=== PATIENT | male | born 1940 | race Caucasian/White ===

== ENCOUNTER 2017-06-29 15:44 | Emergency (ER) | payer OTHER ==
[~2017-06-29] VITALS: Ht 177.8 cm; Wt 79.4 kg
--- NOTE | ~2017-06-29 | EKG ---
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: [facility] : 1940 Requested By: Guzman Díaz Order Number: [id number] MD: Johny Carney Measurements Intervals [place] Rate: 78 P: 18 IN: 154 QRS: -54 QRSD: 79 T: 66 QT: 371 QTc: 423 Interpretive Statements Sinus rhythm Abnormal R-wave progression, early transition Inferior infarct, old Compared to ECG 10/28/2013 22:49:47 Sinus tachycardia no longer present Ventricular premature complex(es) no longer present Left-axis deviation no longer present Myocardial infarct finding still present Electronically Signed On 06-29-2017 16:36:40 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
[~2017-06-29 15:44] MED LIST: ASPIRIN81 M2 PO; CALCIUM 600 +1 EA11 PO; CLARAVIS10 MG PO; COUMADIN6 MG PO; DILTIAZEM ER120 M1 PO; FEXOFENADINE HC30 MG PO; FLONASE 0.05%50 MCG NS; LOVASTAT40 PO; MACROBID 100 M100 M1 PO; MULTIVITAMINS PO
[2017-06-29 16:09] LABS: ABSOLUTE NEUTROPHILS 9.1 thou/uL (1.4-8.2); BASOPHILS 0.9 % (0.0-2.0); EOSINOPHILS 1.4 % (0.0-3.0); HEMATOCRIT 41.8 % (42.0-52.0); HEMOGLOBIN 13.8 gm/dL (14.0-18.0); LYMPHOCYTES 11.2 % (24.0-44.0); MCHC 32.9 g/dL (28.0-37.0); MCV 91.3 fL (80.0-100.0); MONOCYTES 9.1 % (1.0-8.0); PLATELET COUNT 164 thou/uL (150-400); POLYS 77.4 % (36.0-66.0); RBC 4.58 mil/uL (4.50-6.00); RDW 14.4 % (10.5-14.5); WBC 11.7 thou/uL (4.0-11.0)
[2017-06-29 16:14] LABS: MANUAL DIFF NO
[2017-06-29 16:21] LABS: ANION GAP 4 mmol/L (7-16); BUN 23 mg/dL (7-18); CALCIUM 9.3 mg/dL (8.5-10.1); CHLORIDE 107 mmol/L (98-107); CO2 30 mmol/L (21-32); CREATININE 1.5 mg/dL (0.7-1.3); GLUCOSE 102 mg/dL (74-106); POTASSIUM 4.1 mmol/L (3.5-5.1); SODIUM 141 mmol/L (136-145)
[2017-06-29 16:22] LABS: APTT 29.5 Seconds (24.5-32.8); PROTIME 10.2 Seconds (9.3-11.4)
[2017-06-29 16:30] LABS: TROPONIN-I < 0.04 ng/mL (<0.06)
== END 2017-06-29 17:42 | disposition home or self-care (01) ==
LOC: ER 15:44
PROVIDERS: Physician Assistant
DX: I48.0 Paroxysmal atrial fibrillation (principal); N18.9 Chronic kidney disease, unspecified; Z85.46 Personal history of malignant neoplasm of prostate; Z91.041 Radiographic dye allergy status; Z88.0 Allergy status to penicillin